=== PATIENT | male | born 1950 | race Caucasian/White ===

== ENCOUNTER 2021-03-15 11:45 | Emergency (ER) | payer OTHER ==
[~2021-03-15 11:45] MED LIST: Dextrose 5 %-0.45 % NaCl 1000 ml Bag ONE
[2021-03-15] MEDS ORDERED: Iopamidol 370 76% 100 ML VIAL ONE (12:07)
[2021-03-15 13:16] LABS: ALT (SGPT) 317 U/L (8-55); AST (SGOT) 641 U/L (5-34); Alkaline Phosphatase 168 U/L (40-110); Anion Gap 17 mmol/L (10-20); BUN (Urea Nitrogen) 38 mg/dL (8.4-25.7); Calc. Creatinine Clearance 0 mL/min (70-130); Carbon Dioxide 19 mmol/L (23-31); Chloride 109 mmol/L (98-107); Globulin 2.6 g/dL (2.4-3.5); Glucose 231 mg/dL (80-115); Lipase 9 U/L (8-78); Potassium 4.5 mmol/L (3.5-5.1); Protein, Total 6.6 g/dL (5.8-8.1); Sodium 140 mmol/L (136-145)
[2021-03-15 13:24] LABS: Band 12 % (5-11); Hemoglobin 15.5 g/dL (14.0-18.0); Lymphocytes 4 % (21-51); MDiff Complete? YES; Mean Corpuscular HGB CONC 32.6 g/dL (32.0-36.0); Mean Corpuscular Hemoglobin 29.8 pg (27.0-31.0); Mean Corpuscular Volume 91.5 fL (78.0-98.0); Mean Platelet Volume 8.1 fL (7.4-10.4); Monocytes 2 % (0-10); Neutrophil 82 % (42-75); Platelet Count 200 thou/uL (130-400); Platelet Morphology Comment Appears Adequate; RBC Distribution Width 11.8 % (11.5-14.5); RBC Morphology Normal; White Blood Cell (WBC) Count 5.9 thou/uL (4.8-10.8)
[2021-03-15] MEDS ORDERED: Ondansetron PF 4 MG/2 ML Vial ONE (13:27)
[2021-03-15] MEDS ORDERED: Pantoprazole 40 MG VIAL ONE (13:27)
[2021-03-15] MEDS ORDERED: Sodium Chloride 0.9% 1,000 ML ONE ×2 (13:27→14:48)
[2021-03-15] MEDS ORDERED: Piperacillin/Tazobactam 4.5 GM VIAL ONE ×2 (14:48→23:01)
[2021-03-15] MEDS ORDERED: Sodium Chloride 0.9% 100 ML ONE ×2 (14:48→23:01)
[2021-03-15 15:40] LABS: Lactic Acid 3.9 mmol/L (0.5-2.2)
[2021-03-15] MEDS ORDERED: Sodium Chloride 0.9% 500 ML ONE (16:13)
[2021-03-15 16:48] LABS: SARS-CoV-2 NAA Rapid Test Not Detected (NotDetected)
[2021-03-15] MEDS ORDERED: Acetaminophen 650 MG Suppository ONE (19:07)
[2021-03-15 23:36] LABS: Hemoglobin 13.9 g/dL (14.0-18.0); Lymphocytes 9 % (21-51); MDiff Complete? YES; Mean Corpuscular HGB CONC 32.8 g/dL (32.0-36.0); Mean Corpuscular Volume 91.6 fL (78.0-98.0); Mean Platelet Volume 7.9 fL (7.4-10.4); Monocytes 5 % (0-10); Neutrophil 86 % (42-75); Platelet Count 206 thou/uL (130-400); Platelet Morphology Comment Appears Adequate; RBC Distribution Width 12.2 % (11.5-14.5); RBC Morphology Normal; Red Blood Cell (RBC) Count 4.63 mill/uL (4.70-6.10); White Blood Cell (WBC) Count 17.1 thou/uL (4.8-10.8)
[2021-03-15 23:37] LABS: ALT (SGPT) 573 U/L (8-55); AST (SGOT) 686 U/L (5-34); Albumin 3.5 g/dL (3.4-4.8); Alkaline Phosphatase 146 U/L (40-110); Anion Gap 14 mmol/L (10-20); BUN (Urea Nitrogen) 31 mg/dL (8.4-25.7); Calc. Creatinine Clearance 0 mL/min (70-130); Calcium 8.4 mg/dL (7.8-10.44); Carbon Dioxide 22 mmol/L (23-31); Chloride 110 mmol/L (98-107); Globulin 2.4 g/dL (2.4-3.5); Glucose 63 mg/dL (80-115); Potassium 4.8 mmol/L (3.5-5.1); Protein, Total 5.9 g/dL (5.8-8.1); Sodium 141 mmol/L (136-145)
== END 2021-03-16 00:46 | disposition short-term general hospital (02) ==
LOC: MADERS 11:45
DX: K83.09 Other cholangitis (principal); R00.0 Tachycardia, unspecified; R10.811 Right upper quadrant abdominal tenderness; E86.0 Dehydration; R11.15 Cyclical vomiting syndrome unrelated to migraine; E11.9 Type 2 diabetes mellitus without complications; I10 Essential (primary) hypertension; Z79.899 Other long term (current) drug therapy
CPT/HCPCS: 36415; 74177; 80053; 83605; 83690; 83735; 84484; 85025; 87040; 87077; 87149; 87186; 93005; 94760; 96365; 96366; 96367; 96375; C9113; J2405; J2543; J3370; J3490; J7030; J7042; J7050; Q9967; U0002

== ENCOUNTER 2021-08-13 16:14 | Emergency (ER) | payer OTHER | END 2021-08-13 16:50 | disposition home or self-care (01) | LOC: MADERS 16:14 | DX: M10.9 Gout, unspecified (principal); E11.9 Type 2 diabetes mellitus without complications; I10 Essential (primary) hypertension; Z79.899 Other long term (current) drug therapy; Z79.84 Long term (current) use of oral hypoglycemic drugs | CPT/HCPCS: 99283 ==

== ENCOUNTER 2022-05-09 17:47 | Emergency (ER) | payer OTHER ==
[2022-05-09 18:28] LABS: #Basophils 0.1 thou/uL (0.0-0.2); #Eosinphils 0.3 thou/uL (0.0-0.7); #Monocytes 0.5 thou/uL (0.11-0.59); #Neutrophils 3.3 thou/uL (1.40-6.50); %Basophils 1.6 % (0.0-1.0); %Eosinophils 4.1 % (0.0-10.0); %Lymphocytes 31.9 % (21.0-51.0); %Monocytes 8.7 % (0.0-10.0); %Neutrophils 53.7 % (42.0-75.0); Mean Corpuscular HGB CONC 32.9 g/dL (32.0-36.0); Mean Corpuscular Hemoglobin 30.3 pg (27.0-31.0); Mean Corpuscular Volume 92.2 fL (78.0-98.0); Mean Platelet Volume 8.9 fL (7.4-10.4); Platelet Count 188 thou/uL (130-400); RBC Distribution Width 12.5 % (11.5-14.5); Red Blood Cell (RBC) Count 4.94 mill/uL (4.70-6.10); White Blood Cell (WBC) Count 6.1 thou/uL (4.8-10.8)
[2022-05-09 18:45] LABS: ALT (SGPT) 20 U/L (8-55); AST (SGOT) 16 U/L (5-34); Albumin 3.9 g/dL (3.4-4.8); Alkaline Phosphatase 112 U/L (40-110); Anion Gap 14 mmol/L (10-20); BUN (Urea Nitrogen) 23 mg/dL (8.4-25.7); Bilirubin, Total 0.8 mg/dL (0.2-1.2); Calc. Creatinine Clearance 0 mL/min (70-130); Calcium 8.8 mg/dL (7.8-10.44); Carbon Dioxide 20 mmol/L (23-31); Chloride 109 mmol/L (98-107); Estimated GFR 47; Globulin 2.9 g/dL (2.4-3.5); Glucose 290 mg/dL (80-115); Magnesium 1.7 mg/dL (1.6-2.6); Protein, Total 6.8 g/dL (5.8-8.1); Sodium 139 mmol/L (136-145)
[2022-05-09] MEDS ORDERED: Acetaminophen 500 MG TAB ONE (20:55)
[2022-05-09 22:19] LABS: Bilirubin Negative (Negative); Blood, Urine Negative (Negative); Clarity Clear (Clear); Glucose, Urine (Dipstick) >=1000 mg/dL (Negative); Ketone, Urine Negative (Negative); Leukocyte Negative (Negative); Nitrite Negative (Negative); Protein, Urine (Dipstick) Negative (Neg-Trace); Specific Gravity, Urine 1.015 (1.005-1.030)
[2022-05-10] MEDS ORDERED: Acetaminophen 500 MG TAB ONE ×3 (09:09→15:10)
== END 2022-05-10 15:20 | disposition short-term general hospital (02) ==
LOC: MADERS 17:47
DX: I63.9 Cerebral infarction, unspecified (principal); R29.700 NIHSS score 0; E11.65 Type 2 diabetes mellitus with hyperglycemia; I10 Essential (primary) hypertension; M10.9 Gout, unspecified; E78.5 Hyperlipidemia, unspecified; Z79.84 Long term (current) use of oral hypoglycemic drugs; Z79.899 Other long term (current) drug therapy
CPT/HCPCS: 36416; 70450; 80053; 81003; 83735; 84443; 84484; 85025; 86140; 93005; 94760

== ENCOUNTER 2023-11-07 08:39 | Outpatient (CLI) | payer OTHER ==
[2023-11-07 09:26] LABS: Bilirubin Negative (Negative); Blood, Urine Negative (Negative); Clarity Clear (Clear); Glucose, Urine (Dipstick) 500 mg/dL (Negative); Ketone, Urine Negative (Negative); Leukocyte Negative (Negative); Nitrite Negative (Negative); Protein, Urine (Dipstick) Negative (Neg-Trace); Specific Gravity, Urine 1.025 (1.005-1.030); pH, Urine 5.5 (5.0-9.0)
[2023-11-07 09:39] LABS: ALT (SGPT) 17 U/L (8-55); AST (SGOT) 17 U/L (5-34); Albumin 4.2 g/dL (3.4-4.8); Alkaline Phosphatase 109 U/L (40-110); Anion Gap 11 mmol/L (10-20); BUN (Urea Nitrogen) 24 mg/dL (8.4-25.7); Bilirubin, Total 1.2 mg/dL (0.2-1.2); Calc. Creatinine Clearance 0 mL/min (70-130); Calcium 9.3 mg/dL (7.8-10.44); Carbon Dioxide 25 mmol/L (23-31); Chloride 104 mmol/L (98-107); Estimated GFR 47; Globulin 2.8 g/dL (2.4-3.5); Glucose 288 mg/dL (83-110); Potassium 3.9 mmol/L (3.5-5.1)
[2023-11-07 13:02] LABS: Sodium 136 mmol/L (136-145)
[2023-11-07 20:04] LABS: Creatinine, Urine 122.57 mg/dL (63-166); Microalbumin Urine 2.7 mg/dL (0.5-50.0)
== END 2023-11-07 08:40 | disposition home or self-care (01) ==
LOC: MADLAB 08:39
PROVIDERS: ATTEND Chiropractor
DX: M17.0 Bilateral primary osteoarthritis of knee (principal); E78.5 Hyperlipidemia, unspecified; K76.9 Liver disease, unspecified; M89.9 Disorder of bone, unspecified
CPT/HCPCS: 36415; 80053; 81003; 82043